=== PATIENT | female | born 1950 | race Caucasian/White ===

== ENCOUNTER 2021-09-30 04:07 | Inpatient (IN) | payer OTHER, MEDICARE ==
[2021-09-24 13:11] VITALS: BMI 20.6
[2021-09-30] MEDS ORDERED: INDOCYANINE GREEN 25 MG/10 ML VIAL IVPUSH ONE ×5 (09:23→14:08)
[2021-09-30] MEDS ORDERED: BUPIVACAINE HCL/PF 0.25% (2.5MG/ML) 10 ML VIAL ONE (09:44)
[2021-09-30] MEDS ORDERED: ERTAPENEM SODIUM 1 GM in SODIUM CHLORIDE 50 ML IVPB ONE (10:30)
[2021-09-30] MEDS ORDERED: ALVIMOPAN 12 MG CAP PO ONE (10:30)
[2021-09-30] MEDS ORDERED: MIDAZOLAM HCL 2 MG/2 ML SINGLE DOSE VIAL ONE (12:01)
[2021-09-30] MEDS ORDERED: PROPOFOL 20 ML ONE (12:17)
[2021-09-30] MEDS ORDERED: ERTAPENEM SODIUM 1 GM VIAL IVPB ONE (12:30)
[2021-09-30] MEDS ORDERED: ALBUMIN HUMAN 5% 500 ML IV SOLUTION IV ONE (12:45)
[2021-09-30] MEDS ORDERED: DESFLURANE GAS 240 ML BOTTLE IH ONE (12:50)
[2021-09-30] MEDS ORDERED: ROCURONIUM BROMIDE 50 MG/5 ML SYRINGE ONE (13:17)
[2021-09-30] MEDS ORDERED: IOHEXOL 180 MG/1 ML ML IJ ONE (13:50)
[2021-09-30] MEDS ORDERED: BUPIVACAINE HCL/PF 0.25% (2.5MG/ML) 10 ML VIAL IJ ONE (13:50)
[2021-09-30] MEDS ORDERED: GLYCOPYRROLATE 0.2 MG/1 ML VIAL ONE (16:40)
[2021-09-30] MEDS ORDERED: NEOSTIGMINE METHYLSULFATE 0.5 MG/1 ML - 10 ML MDV ONE (17:09)
[2021-09-30] MEDS ORDERED: oxyCODONE HCL 5 MG TABLET PO PRN (18:10)
[2021-09-30] MEDS ORDERED: ONDANSETRON 4 MG/2 ML VIAL IVPUSH PRN ×3 (18:10→18:24)
[2021-09-30] MEDS ORDERED: DEXTROSE 5%-0.45% SALINE 1,000 ML IV SCH (18:15)
[2021-09-30] MEDS ORDERED: FENTANYL CITRATE/PF 50 MCG/ML VIAL ONE ×4 (18:16→18:49)
[2021-09-30] MEDS ORDERED: PROMETHAZINE HCL 25 MG/1 ML VIAL IVPUSH PRN (18:16)
[2021-09-30] MEDS ORDERED: PROMETHAZINE HCL 25 MG/1 ML VIAL IVPB PRN (18:24)
[2021-09-30] MEDS ORDERED: DEXAMETHASONE SOD PHOSPHATE 4 MG/1 ML VIAL IVPUSH PRN (18:24)
[2021-09-30] MEDS ORDERED: LACTATED RINGERS SOLUTION 1,000 ML IV SCH (18:30)
[2021-09-30] MEDS ORDERED: KETOROLAC TROMETHAMINE 30 MG/1 ML VIAL ONE (18:38)
[2021-09-30] MEDS ORDERED: KETOROLAC TROMETHAMINE 15 MG/ML VIAL IVPUSH ONE (18:41)
[2021-09-30] MEDS: HYDROmorphone *PCA* 10MG/50ML DISP.SYRIN PCA SCH (18:45)
[2021-09-30] MEDS ORDERED: ONDANSETRON 4 MG/2 ML VIAL ONE (19:25)
[2021-09-30] MEDS ORDERED: PROMETHAZINE HCL 25 MG/1 ML VIAL ONE (19:41)
[2021-09-30] MEDS: ACETAMINOPHEN 1000 MG/100 ML BAG IVPB SCH (21:54)
[2021-09-30] MEDS: FAMOTIDINE 20 MG/50 ML IVPB 20 MG/50 ML MG IVPB SCH (21:55)
[2021-09-30] MEDS: IBUPROFEN 400 MG TABLET (FP) PO SCH (23:35)
[2021-09-30] MEDS: ALVIMOPAN 12 MG CAP PO SCH (23:36)
[2021-10-01] MEDS: ACETAMINOPHEN 1000 MG/100 ML BAG IVPB SCH ×4 (01:58→15:02)
[2021-10-01 03:43] LABS: CALCIUM 8.3 mg/dL (8.5-10.1)
[2021-10-01 03:44] LABS: BLOOD UREA NITROGEN 8.6 mg/dL (7-18)
[2021-10-01 03:47] LABS: CREATININE 0.7 mg/dL (0.55-1.3)
[2021-10-01 03:49] LABS: HEMATOCRIT 36.6 % (32.4-45.2); HEMOGLOBIN 12.2 GM/dL (10.7-15.3); MCH 29.6 pg (25.7-33.7); MCHC 33.3 g/dl (32.0-36.0); MEAN CELL VOLUME 88.8 fl (80-96); MEAN PLT VOLUME 7.7 fl (7.5-11.1); PLATELET COUNT 264 10^3/uL (134-434); RBC 4.12 M/mm3 (3.60-5.2); RDW 14.5 % (11.6-15.6); WHITE BLOOD COUNT 12.6 K/mm3 (4.0-10.0)
[2021-10-01] MEDS: LACTATED RINGERS SOLUTION 1,000 ML IV SCH ×2 (06:02→19:01)
[2021-10-01] MEDS: IBUPROFEN 400 MG TABLET (FP) PO SCH ×4 (07:04→23:58)
[2021-10-01] MEDS: HYDROmorphone *PCA* 10MG/50ML DISP.SYRIN PCA SCH ×2 (08:13→18:49)
[2021-10-01] MEDS ORDERED: HEPARIN NA (PORCINE) 5,000 UNITS/ML 1ML VIAL SQ SCH (10:00)
[2021-10-01] MEDS: FAMOTIDINE 20 MG/50 ML IVPB 20 MG/50 ML MG IVPB SCH ×2 (10:48→23:23)
[2021-10-01] MEDS: ALVIMOPAN 12 MG CAP PO SCH (10:48)
[2021-10-01 11:04] LABS: CALCIUM 8.5 mg/dL (8.5-10.1)
[2021-10-01 11:05] LABS: BLOOD UREA NITROGEN 7.4 mg/dL (7-18)
[2021-10-01 11:08] LABS: CREATININE 0.6 mg/dL (0.55-1.3)
[2021-10-01 11:23] LABS: HEMOGLOBIN 11.1 GM/dL (10.7-15.3); MCH 29.7 pg (25.7-33.7); MCHC 33.6 g/dl (32.0-36.0); MEAN CELL VOLUME 88.4 fl (80-96); MEAN PLT VOLUME 8.4 fl (7.5-11.1); PLATELET COUNT 257 10^3/uL (134-434); RBC 3.73 M/mm3 (3.60-5.2); WHITE BLOOD COUNT 11.5 K/mm3 (4.0-10.0)
[2021-10-01] MEDS: HEPARIN NA (PORCINE) 5,000 UNITS/ML 1ML VIAL SQ SCH ×2 (14:48→23:23)
[2021-10-01] MEDS ORDERED: ACETAMINOPHEN 650 MG/20.3 ML ORAL SOLUTION (CUPS) PO PRN (20:00)
[2021-10-02] MEDS: ALVIMOPAN 12 MG CAP PO SCH ×3 (00:37→10:10)
[2021-10-02] MEDS: IBUPROFEN 400 MG TABLET (FP) PO SCH ×5 (05:15→21:02)
[2021-10-02] MEDS: HEPARIN NA (PORCINE) 5,000 UNITS/ML 1ML VIAL SQ SCH ×3 (05:15→22:16)
[2021-10-02 08:25] LABS: HEMATOCRIT 32.9 % (32.4-45.2); HEMOGLOBIN 11.2 GM/dL (10.7-15.3); MCHC 34.1 g/dl (32.0-36.0); MEAN CELL VOLUME 87.9 fl (80-96); MEAN PLT VOLUME 8.6 fl (7.5-11.1); PLATELET COUNT 273 10^3/uL (134-434); RBC 3.75 M/mm3 (3.60-5.2); RDW 14.3 % (11.6-15.6); WHITE BLOOD COUNT 9.5 K/mm3 (4.0-10.0)
[2021-10-02] MEDS: ACETAMINOPHEN 325 MG TABLET (FP) PO SCH ×4 (08:49→20:58)
[2021-10-02 08:55] LABS: BLOOD UREA NITROGEN 6.6 mg/dL (7-18); CALCIUM 8.5 mg/dL (8.5-10.1)
[2021-10-02 08:59] LABS: CREATININE 0.6 mg/dL (0.55-1.3)
[2021-10-02] MEDS: FAMOTIDINE 20 MG/50 ML IVPB 20 MG/50 ML MG IVPB SCH ×2 (10:10→22:16)
[2021-10-02] MEDS: LACTATED RINGERS SOLUTION 1,000 ML IV SCH (11:19)
[2021-10-02] MEDS: HYDROmorphone *PCA* 10MG/50ML DISP.SYRIN PCA SCH (18:25)
[2021-10-03] MEDS: ACETAMINOPHEN 325 MG TABLET (FP) PO SCH ×6 (01:43→19:07)
[2021-10-03] MEDS: IBUPROFEN 400 MG TABLET (FP) PO SCH ×5 (01:43→17:15)
[2021-10-03] MEDS: HEPARIN NA (PORCINE) 5,000 UNITS/ML 1ML VIAL SQ SCH ×3 (06:03→21:13)
[2021-10-03 08:32] LABS: HEMATOCRIT 35.7 % (32.4-45.2); HEMOGLOBIN 12.1 GM/dL (10.7-15.3); MCH 29.7 pg (25.7-33.7); MCHC 33.9 g/dl (32.0-36.0); MEAN CELL VOLUME 87.7 fl (80-96); MEAN PLT VOLUME 8.4 fl (7.5-11.1); PLATELET COUNT 342 10^3/uL (134-434); RBC 4.07 M/mm3 (3.60-5.2); RDW 14.3 % (11.6-15.6); WHITE BLOOD COUNT 8.9 K/mm3 (4.0-10.0)
[2021-10-03 08:48] LABS: CALCIUM 8.7 mg/dL (8.5-10.1)
[2021-10-03 08:49] LABS: BLOOD UREA NITROGEN 6.7 mg/dL (7-18)
[2021-10-03 08:52] LABS: CREATININE 0.5 mg/dL (0.55-1.3)
[2021-10-03] MEDS: FAMOTIDINE 20 MG/50 ML IVPB 20 MG/50 ML MG IVPB SCH ×2 (10:20→22:21)
[2021-10-03] MEDS: LACTATED RINGERS SOLUTION 1,000 ML IV SCH (13:43)
[2021-10-03 15:49] LABS: EPI CELLS 36 /uL (0-25.1); HYALINE CASTS 2 /uL (0-3.1); URINE APPEARANCE CLOUDY; URINE BACTERIA 5 /uL (0-1359); URINE BILIRUBIN NEGATIVE (NEGATIVE); URINE COLOR RED; URINE GLUCOSE (UA) NEGATIVE (NEGATIVE); URINE KETONE 2+ (NEGATIVE); URINE LEUK ESTERASE 2+ (NEGATIVE); URINE NITRITE NEGATIVE (NEGATIVE); URINE PROTEIN 1+ (NEGATIVE); URINE RBC 10722 /uL (0-23.9); URINE WBC 221 /uL (0-25.8)
[2021-10-03] MEDS ORDERED: POTASSIUM CHLORIDE TABS 20 MEQ TABLET.ER (FP) PO ONE (16:19)
[2021-10-03] MEDS: LACTATED RINGERS SOLUTION 1,000 ML/1,000 ML INFUS.BAG IV SCH ×2 (18:24→22:51)
[2021-10-03] MEDS ORDERED: CEFTRIAXONE 1 GM in DEXTROSE 5%-WATER - 50 ML IVPB ONE (20:00)
[2021-10-03] MEDS ORDERED: DEXTROSE 5%-WATER - 50 ML IVPB ONE (21:03)
[2021-10-03] MEDS ORDERED: cefTRIAXone SODIUM 1 GM VIAL ONE (21:03)
[2021-10-04] MEDS: ACETAMINOPHEN 325 MG TABLET (FP) PO SCH ×6 (02:53→21:06)
[2021-10-04] MEDS: HEPARIN NA (PORCINE) 5,000 UNITS/ML 1ML VIAL SQ SCH ×3 (05:40→21:07)
[2021-10-04 09:50] LABS: HEMATOCRIT 34.3 % (32.4-45.2); HEMOGLOBIN 11.5 GM/dL (10.7-15.3); MCH 29.6 pg (25.7-33.7); MCHC 33.6 g/dl (32.0-36.0); MEAN CELL VOLUME 88.1 fl (80-96); MEAN PLT VOLUME 8.4 fl (7.5-11.1); PLATELET COUNT 313 10^3/uL (134-434); RBC 3.89 M/mm3 (3.60-5.2); RDW 14.1 % (11.6-15.6); WHITE BLOOD COUNT 8.1 K/mm3 (4.0-10.0)
[2021-10-04] MEDS: FAMOTIDINE 20 MG/50 ML IVPB 20 MG/50 ML MG IVPB SCH ×2 (10:00→21:05)
[2021-10-04 10:06] LABS: BLOOD UREA NITROGEN 6.8 mg/dL (7-18); CALCIUM 8.8 mg/dL (8.5-10.1)
[2021-10-04 10:14] LABS: CREATININE 0.5 mg/dL (0.55-1.3)
[2021-10-04] MEDS: LACTATED RINGERS SOLUTION 1,000 ML/1,000 ML INFUS.BAG IV SCH (10:42)
[2021-10-05] MEDS: LACTATED RINGERS SOLUTION 1,000 ML/1,000 ML INFUS.BAG IV SCH (01:09)
[2021-10-05] MEDS: ACETAMINOPHEN 325 MG TABLET (FP) PO SCH ×6 (01:09→22:04)
[2021-10-05] MEDS ORDERED: ACETAMINOPHEN 1000 MG/100 ML BAG IVPB ONE (05:12)
[2021-10-05] MEDS: HEPARIN NA (PORCINE) 5,000 UNITS/ML 1ML VIAL SQ SCH ×3 (06:34→22:05)
[2021-10-05] MEDS: FAMOTIDINE 20 MG/50 ML IVPB 20 MG/50 ML MG IVPB SCH ×2 (09:38→22:05)
[2021-10-05 11:27] LABS: CALCIUM 8.8 mg/dL (8.5-10.1)
[2021-10-05 11:28] LABS: BLOOD UREA NITROGEN 6.4 mg/dL (7-18)
[2021-10-05 11:31] LABS: CREATININE 0.5 mg/dL (0.55-1.3)
[2021-10-05 13:05] LABS: HEMATOCRIT 35.9 % (32.4-45.2); HEMOGLOBIN 12.3 GM/dL (10.7-15.3); MCH 30.1 pg (25.7-33.7); MCHC 34.2 g/dl (32.0-36.0); MEAN PLT VOLUME 7.9 fl (7.5-11.1); PLATELET COUNT 397 10^3/uL (134-434); RBC 4.08 M/mm3 (3.60-5.2); RDW 14.3 % (11.6-15.6); WHITE BLOOD COUNT 7.6 K/mm3 (4.0-10.0)
[2021-10-06] MEDS: ACETAMINOPHEN 325 MG TABLET (FP) PO SCH ×4 (00:24→11:37)
[2021-10-06] MEDS: HEPARIN NA (PORCINE) 5,000 UNITS/ML 1ML VIAL SQ SCH ×2 (05:51→14:07)
[2021-10-06] MEDS: FAMOTIDINE 20 MG/50 ML IVPB 20 MG/50 ML MG IVPB SCH (09:39)
[2021-10-06 10:18] LABS: HEMATOCRIT 35.3 % (32.4-45.2); MCH 29.7 pg (25.7-33.7); MEAN CELL VOLUME 87.3 fl (80-96); MEAN PLT VOLUME 8.2 fl (7.5-11.1); PLATELET COUNT 378 10^3/uL (134-434); RBC 4.05 M/mm3 (3.60-5.2); RDW 14.2 % (11.6-15.6); WHITE BLOOD COUNT 6.8 K/mm3 (4.0-10.0)
[2021-10-06 11:14] LABS: BLOOD UREA NITROGEN 6.2 mg/dL (7-18)
[2021-10-06 11:17] LABS: CREATININE 0.5 mg/dL (0.55-1.3)
[2021-10-06 14:26] VITALS: BP 143/94; PULSE 75; TEMP 98.3
[2021-10-06] MEDS ORDERED: AMOXICILLIN 500 MG CAPSULE (FP) PO ONE (14:30)
[2021-10-13 08:36] LABS: HEMATOCRIT 35.9 % (32.4-45.2); HEMOGLOBIN 11.8 GM/dL (10.7-15.3); MCH 29.6 pg (25.7-33.7); MEAN CELL VOLUME 89.6 fl (80-96); MEAN PLT VOLUME 7.7 fl (7.5-11.1); PLATELET COUNT 526 10^3/uL (134-434); WHITE BLOOD COUNT 8.9 K/mm3 (4.0-10.0)
[2021-10-13 08:48] LABS: TOT PROT 6.9 g/dl (6.4-8.2)
[2021-10-13 08:57] LABS: ALBUMIN 3.6 g/dl (3.4-5.0); CALCIUM 9.8 mg/dL (8.5-10.1)
[2021-10-13 08:58] LABS: BLOOD UREA NITROGEN 7.6 mg/dL (7-18)
[2021-10-13 09:00] LABS: CREATININE 0.7 mg/dL (0.55-1.3)
[2021-10-13 09:02] LABS: BILIRUBIN,TOTAL 0.2 mg/dL (0.2-1)
== END 2021-10-06 15:36 | disposition home health service (06) | DRG 329 ==
LOC: J2C 04:07 → EDSTATUS 08:00 → J8W 20:49
PROVIDERS: ADMIT Surgery; ATTEND Internal Medicine
PROC: 0DNL4ZZ Release Transverse Colon, Percutaneous Endoscopic Approach (ICD-10-PCS; 2021-09-30)
PROC: 0T778DZ Dilation of Left Ureter with Intraluminal Device, Via Natural or Artificial Opening Endoscopic (ICD-10-PCS; 2021-09-30)
PROC: 0DTN4ZZ Resection of Sigmoid Colon, Percutaneous Endoscopic Approach (ICD-10-PCS; principal; 2021-09-30 11:00)
PROC: 0W9G4ZZ Drainage of Peritoneal Cavity, Percutaneous Endoscopic Approach (ICD-10-PCS; 2021-09-30 11:00)
DX: K57.31 Diverticulosis of large intestine without perforation or abscess with bleeding (principal); K65.1 Peritoneal abscess; K66.0 Peritoneal adhesions (postprocedural) (postinfection)
CPT/HCPCS: 36415; 74018-TC-FY; 76000-TC-FY; 80048; 80053; 81003; 82570; 83036; 85027; 86140; 86850; 86900; 86901; 87086; 87186; 88305-TC; 88307-TC; 94760; 97116-GP; 97161-GP; J1644